=== PATIENT | male | born 1985 | race American Indian/Alaskan Native ===

== ENCOUNTER 2019-05-27 05:03 | Emergency (ER) | payer SELFPAY ==
--- NOTE | 2019-05-27 06:37 | XRay Report ---
CHEST 2 VIEWS INDICATION / CLINICAL INFORMATION: MAIN: Chest Pain X 1 DAY, CLAMMY, NUMB IN BOTH HANDS, SWEATING IN BOTH HANDS AND FEET. COMPARISON: 02/19/11 FINDINGS: SUPPORT DEVICES: None. HEART / MEDIASTINUM: No significant abnormality. LUNGS / PLEURA: No significant pulmonary or pleural abnormality. No pneumothorax. ADDITIONAL FINDINGS: No significant additional findings. IMPRESSION: 1. No acute findings. Signer Name: Jes Aburto MD Signed: 05/27/2019 6:33 AM Workstation Name: [id number]
[2019-05-27 06:40] LABS: Basophils # (Auto) 0.1 K/mm3 (0.0-0.1); Basophils % (Auto) 0.6 % (0.0-1.8); Eosinophils # (Auto) 0.1 K/mm3 (0.0-0.4); Eosinophils % (Auto) 1.4 % (0.0-4.3); Hematocrit 44.8 % (35.5-45.6); Hemoglobin 15.1 gm/dl (11.8-15.2); Lymphocytes # (Auto) 1.8 K/mm3 (1.2-5.4); Mean Corpuscular HGB Conc 34 % (32-34); Mean Corpuscular Volume 86 fl (84-94); Monocytes # (Auto) 0.5 K/mm3 (0.0-0.8); Monocytes % (Auto) 5.1 % (0.0-7.3); Platelet Count 184 K/mm3 (140-440); Red Blood Count 5.19 M/mm3 (3.65-5.03); Red Cell Distribution Width 13.9 % (13.2-15.2)
[2019-05-27 07:04] LABS: INR 0.93 (0.87-1.13); Partial Thromboplastin Time 26.1 Sec. (24.2-36.6)
--- NOTE | 2019-05-27 07:05 | Emergency Department Report ---
ED Chest Pain HPI - General Chief Complaint: Chest Pain Stated Complaint: CHEST PAIN Time Seen by Provider: 05/27/19 06:20 Source: patient, EMS Mode of arrival: Stretcher Limitations: No Limitations - History of Present Illness Initial Comments: Patient is a 33 years old male with no significant past medical history. Patient presented to the ER complaining of substernal chest pain. Patient describes his pain as pressure with radiation to his throat. Patient stated the pain started last night while he was resting. Patient stated the pain was 7 out of 10 but now the pain is completely resolved. Patient denied any fever or chills. He stated that he has been having some congestion but no runny nose. No cough or shortness of breath. Patient stated that he works at [employer]. MD Complaint: chest pain -: Last night Onset: during rest Pain Location: substernal Pain Radiation: none Severity scale (0 -10): 7 Quality: heaviness - Related Data Allergies Allergy/AdvReac Type Severity Reaction Status Date / Time No Known Allergies Allergy Unverified 05/27/19 05:37 Heart Score - HEART Score History: Slightly suspicious EKG: Non-specific Age: < 45 Risk factors: No known risk factors Troponin: < normal limit HEART Score: 1 - Critical Actions Critical Actions: 0-3 pts:0.9-1.7%risk of adverse cardiac event.Candidate for discharge ED Review of Systems ROS: Stated complaint: CHEST PAIN Other details as noted in HPI Comment: All other systems reviewed and negative Constitutional: denies: chills, fever ENT: throat pain, congestion Respiratory: denies: cough, shortness of breath, SOB with exertion Cardiovascular: chest pain Gastrointestinal: denies: abdominal pain, nausea, vomiting ED Past Medical Hx - Past Medical History Previous Medical History?: No - Surgical History Past Surgical History?: No - Social History Smoking Status: Never Smoker Substance Use Type: None ED Physical Exam - General Limitations: No Limitations General appearance: alert, in no apparent distress - Head Head exam: Present: atraumatic, normocephalic, normal inspection - Eye Eye exam: Present: normal appearance, PERRL - ENT ENT exam: Present: normal exam, normal orophraynx, mucous membranes moist - Neck Neck exam: Present: normal inspection, full ROM. Absent: tenderness, meningismus, lymphadenopathy, thyromegaly - Respiratory Respiratory exam: Present: normal lung sounds bilaterally - Cardiovascular Cardiovascular Exam: Present: regular rate, normal rhythm, normal heart sounds - GI/Abdominal GI/Abdominal exam: Present: soft, normal bowel sounds. Absent: distended, tenderness, guarding, rebound, rigid, organomegaly, mass, bruit, pulsatile mass, hernia - Extremities Exam Extremities exam: Present: normal inspection, full ROM, normal capillary refill. Absent: tenderness, pedal edema, joint swelling, calf tenderness - Back Exam Back exam: Present: normal inspection, full ROM. Absent: CVA tenderness (R), CVA tenderness (L), muscle spasm, paraspinal tenderness, vertebral tenderness - Neurological Exam Neurological exam: Present: alert, oriented X3, CN II-XII intact, normal gait, reflexes normal. Absent: motor sensory deficit - Psychiatric Psychiatric exam: Present: normal mood - Skin Skin exam: Present: warm, intact, normal color ED Course Vital Signs 05/27/19 05/27/19 05/27/19 05:10 05:16 05:30 Temperature 99.5 F Pulse Rate 81 85 Respiratory 18 14 Rate Blood Pressure 131/64 131/64 O2 Sat by Pulse 97 98 98 Oximetry 05/27/19 05/27/19 05/27/19 05:45 06:01 06:23 Temperature Pulse Rate 83 74 88 Respiratory 18 14 21 Rate Blood Pressure 131/64 131/64 131/64 O2 Sat by Pulse 98 99 97 Oximetry 05/27/19 05/27/19 05/27/19 06:30 06:45 07:00 Temperature Pulse Rate 71 69 Respiratory 15 17 22 Rate Blood Pressure 121/71 121/71 130/56 O2 Sat by Pulse 98 98 99 Oximetry 05/27/19 05/27/19 07:15 07:31 Temperature Pulse Rate 87 66 Respiratory 18 18 Rate Blood Pressure 130/56 103/48 O2 Sat by Pulse 98 98 Oximetry ED Medical Decision Making - Lab Data Result diagrams: 05/27/19 05:55 05/27/19 05:55 - EKG Data -: EKG Interpreted by [place] EKG shows normal: sinus rhythm Rate: normal - EKG Data Interpretation: no acute changes - Radiology Data Radiology results: report reviewed - Medical Decision Making Patient is a 33 years old male with no significant past medical history. Patient presented to the ER complaining of substernal chest pain. Patient describes his pain as pressure with radiation to his throat. Patient stated the pain started last night while he was resting. Patient stated the pain was 7 out of 10 but now the pain is completely resolved. Patient denied any fever or chills. He stated that he has been having some congestion but no runny nose. No cough or shortness of breath. Patient stated that he works at [employer]. Patient remained stable with no chest pain. EKG is unremarkable. Labs reviewed and is negative including a negative troponin and a d-dimer. Chest x-ray is unremarkable. Patient symptoms most likely related to GERD however patient advised to follow-up with his primary care physician for cardiac work-up as an outpatient. Patient also advised to return to the ER if he develop any new symptoms. Critical care attestation.: If time is entered above; I have spent that time in minutes in the direct care of this critically ill patient, excluding procedure time. ED Disposition Clinical Impression: Chest pain, GERD (gastroesophageal reflux disease) Disposition: - TO HOME OR SELFCARE Is pt being admited?: No Condition: Stable Instructions: Chest Pain (ED), Gastroesophageal Reflux Disease (ED) Referrals: RAHEEM THAKUR MD [Primary Care Provider] - 3-5 Days
[2019-05-27 09:15] LABS: Alanine Aminotransferase 53 units/L (7-56); Albumin 4.2 g/dL (3.9-5); BUN/Creatinine Ratio 10; Blood Urea Nitrogen 11 mg/dL (9-20); Hemolysis Index 60
[2019-05-27 11:04] LABS: C-Reactive Protein 0.3 mg/dL (0.00-1.30)
[2019-05-27 11:12] VITALS: BP 112/52
== END 2019-05-27 11:11 | disposition home or self-care (01) ==
LOC: ED 05:03
DX: R07.89 Other chest pain (principal); K21.9 Gastro-esophageal reflux disease without esophagitis
CPT/HCPCS: 36415; 71046; 80053; 82728; 83615; 84145; 84484; 85025; 85379; 85610; 85730; 86140; 93005; 93010

== ENCOUNTER 2020-03-19 06:16 | Emergency (ER) | payer OTHER ==
--- NOTE | 2020-03-19 06:57 | Emergency Department Report ---
ED Shortness of Breath HPI - General Chief Complaint: Dyspnea/Respdistress Stated Complaint: SOB Time Seen by Provider: 03/19/20 06:51 Source: patient Mode of arrival: Ambulatory Limitations: No Limitations - History of Present Illness Initial Comments: 34-year-old -[place] male with no significant past medical history presents emerged department complaining of a 4 to 5-week history of cough and occasional shortness of breath with his cough improving but reports still having some episodes of feeling short of breath. He is seen by his primary care doctor at [place] [id number] and has had multiple COVID-19 test and flu test since February 27. Reports having 3 Covid test which were negative and 2 flu test which were negative nonetheless his primary care doctor decided to treat him with Tamiflu, albuterol, Tessalon Perles which he says has not helped the cough but has helped achy symptoms he was experiencing to resolve. States that he feels his symptoms have significantly improved about 3 days ago but still feels unusual sensation of shortness of breath that continues to linger. He reports no hemoptysis, no hematemesis no hematochezia. No fever, chills, sweats. No palpitations. No nausea, no vomiting, no rashes, no leg pain, no leg swelling, no long trips. He has had contact with the coronavirus but has tested negative with his last test being on yesterday which was normal. -: Gradual Improves With: nothing Worsens With: nothing Associated Symptoms: denies other symptoms - Related Data Home Oxygen Therapy: No Previous Rx's Medication Instructions Recorded Last Taken Type Esomeprazole Magnesium [NexIUM] 40 mg PO QDAY #30 capsule. 05/27/19 Unknown Rx Allergies Allergy/AdvReac Type Severity Reaction Status Date / Time No Known Allergies Allergy Unverified 05/27/19 05:37 ED Review of Systems ROS: Stated complaint: SOB Other details as noted in HPI Comment: All other systems reviewed and negative ED Past Medical Hx - Past Medical History Previous Medical History?: No - Surgical History Past Surgical History?: No - Social History Smoking Status: Never Smoker Substance Use Type: None - Medications Home Medications: Home Medications Medication Instructions Recorded Confirmed Last Taken Type Esomeprazole Magnesium [NexIUM] 40 mg PO QDAY #30 capsule. 05/27/19 Unknown Rx ED Physical Exam - General Limitations: No Limitations General appearance: alert, in no apparent distress - Head Head exam: Present: atraumatic, normocephalic, normal inspection - Eye Eye exam: Present: normal appearance, PERRL, EOMI - ENT ENT exam: Present: mucous membranes moist, other (Some nasal congestion bilaterally with clear drainage) - Neck Neck exam: Present: normal inspection, full ROM - Respiratory Respiratory exam: Present: normal lung sounds bilaterally. Absent: respiratory distress, wheezes, rales, rhonchi, stridor, chest wall tenderness, accessory muscle use, decreased breath sounds, prolonged expiratory - Cardiovascular Cardiovascular Exam: Present: regular rate, normal rhythm. Absent: systolic murmur, diastolic murmur, rubs, gallop - GI/Abdominal GI/Abdominal exam: Present: soft, normal bowel sounds. Absent: distended, tenderness, guarding - Rectal Rectal exam: Present: deferred - Extremities Exam Extremities exam: Present: normal inspection - Back Exam Back exam: Present: normal inspection. Absent: CVA tenderness (R), CVA te nderness (L) - Neurological Exam Neurological exam: Present: alert, oriented X3, CN II-XII intact - Psychiatric Psychiatric exam: Present: normal affect, normal mood. Absent: anxious, flat affect, manic, homicidal ideation, suicidal ideation - Skin Skin exam: Present: warm, dry, intact, normal color. Absent: rash ED Course Vital Signs 03/19/20 06:22 Temperature 99.5 F Pulse Rate 91 H Respiratory 18 Rate Blood Pressure 133/78 O2 Sat by Pulse 98 Oximetry ED Medical Decision Making - EKG Data EKG shows normal: sinus rhythm Rate: normal - EKG Data Interpretation: normal EKG (Heart rate 74) - Medical Decision Making This 34-year-old patient presents with symptoms suspicious for likely lingering/post dromal viral upper respiratory tract infection. Differential includes bacterial pneumonia, sinusitis, allergic rhinitis. Do not suspect und erlying Cardiopulmonary process. I considered but think unlikely dangerous cause of this patient symptoms to include acute coronary syndrome, CHF or COPD exacerbations, pneumonia, pneumothorax. Patient has a normal EKG speaks in full sentences he ambulates with no respiratory distress. Had a long conversation about about him following up with his [facility] and his primary care care doctor to maintain continuity and and management at this present time no obvious urgent or emergent medical condition is present. Patient is nontoxic appearing and not in need of emergent medical intervention. Plan: Reassurance, reassessment, [id number] medications, discharge with PCP follow-up Critical care attestation.: If time is entered above; I have spent that time in minutes in the direct care of this critically ill patient, excluding procedure time. ED Disposition Clinical Impression: Congestion of nasal sinus, Post viral syndrome Disposition: TO HOME OR SELFCARE Is pt being admited?: No Does the pt Need Aspirin: No Condition: Good Additional Instructions: Please follow-up with your [facility] doctor as we we discussed follow the management of medications and diet that we discussed as well. You may return to the emergency department should you feel that your condition is worsening but at this present time no emergent medical condition was found on examination Referrals: [facility] [Provider Group] - 3-5 Days
[2020-03-19 07:00] VITALS: BP 132/76
== END 2020-03-19 07:25 | disposition home or self-care (01) ==
LOC: ED 06:16
DX: R09.81 Nasal congestion (principal); B34.9 Viral infection, unspecified; Z79.899 Other long term (current) drug therapy
CPT/HCPCS: 93005